=== PATIENT | female | born 1990 | race Caucasian/White ===

== ENCOUNTER 2024-03-16 14:05 | Inpatient (IN) | payer BC ==
[~2024-03-16] VITALS: Ht 167.6 cm; Wt 79.4 kg
[2024-03-16] MEDS ORDERED: OXYTOCIN/0.9 % SODIUM CHLORIDE 500 ML IV ONE (14:48)
[2024-03-16 14:55] LABS: HEMATOCRIT 43.3 % (35.0-50.0); HEMOGLOBIN 14.9 g/dL (12.0-18.0); MCH 31.6 (27-36); MCHC 34.5 g/dl (30-36); MCV 91.5 fl (81-99); RBC 4.73 M/ul (4.3-5.7); RDW 13.3 (10.5-15.0)
[2024-03-16] MEDS ORDERED: CALCIUM CARBONATE 500 MG CHEW PO PRN ×2 (15:00→16:45)
[2024-03-16] MEDS ORDERED: LACTATED RINGER'S 500 ML IV PRN (15:00)
[2024-03-16] MEDS ORDERED: ePHEDrine sulfate 5 MG/ML SYRINGE IV PRN (15:00)
[2024-03-16] MEDS ORDERED: OXYTOCIN/DEXTROSE 5% 20 UNITS/100 ML BAG IV SCH (15:00)
[2024-03-16] MEDS ORDERED: MAGNESIUM HYDROXIDE/AL HYDROX 30 ML CUP PO PRN ×2 (15:00→16:45)
[2024-03-16] MEDS ORDERED: LACTATED RINGER'S 2,000 ML IV ONE (15:00)
[2024-03-16] MEDS ORDERED: ROPIVACAINE 0.2% 200 ML BAG EPIDURAL SCH (15:00)
[2024-03-16] MEDS ORDERED: fentaNYL citrate 100 MCG/2 ML VIAL ONE (15:01)
[2024-03-16] MEDS ORDERED: ondansetron HCL 4 MG/2 ML VIAL IV ONE (15:15)
[2024-03-16 15:16] LABS: AMPHETAMINES, URINE NEGATIVE (NEGATIVE); BARBITURATES, URINE NEGATIVE (NEGATIVE); BENZODIAZEPINE, URINE NEGATIVE (NEGATIVE); BUPRENORPHINE, URINE NEGATIVE (NEGATIVE); CANNABINOID, URINE POSITIVE (NEGATIVE); COCAINE, URINE NEGATIVE (NEGATIVE); ECSTASY, URINE NEGATIVE (NEGATIVE); FENTANYL, URINE NEGATIVE (NEGATIVE); METHADONE, URINE NEGATIVE (NEGATIVE); OPIATES, URINE NEGATIVE (NEGATIVE); OXYCODONE, URINE NEGATIVE (NEGATIVE); PHENCYCLIDINE, URINE NEGATIVE (NEGATIVE)
[2024-03-16 15:22] LABS: ABO O; ANTIBODY SCREEN NEGATIVE; RH POSITIVE
[2024-03-16 15:47] VITALS: BP 119/59
[2024-03-16] MEDS ORDERED: WITCH HAZEL/GLYCERIN 1 EA PAD TOP PRN (16:45)
[2024-03-16] MEDS ORDERED: OXYTOCIN/0.9 % SODIUM CHLORIDE 500 ML IV SCH ×2 (16:45→17:15)
[2024-03-16] MEDS ORDERED: HYDROCORTISONE ACETATE 25 MG SUPP PR PRN (16:45)
[2024-03-16] MEDS ORDERED: ACETAMINOPHEN 325 MG TAB PO PRN (16:45)
[2024-03-16] MEDS ORDERED: BENZOCAINE 60 ML AEROSOL TOP PRN (16:45)
[2024-03-16] MEDS ORDERED: MAGNESIUM HYDROXIDE 30 ML UDC PO PRN (16:45)
[2024-03-16] MEDS ORDERED: IBUPROFEN 600 MG TAB PO PRN (16:45)
[2024-03-16] MEDS ORDERED: LIDOCAINE 2% VISCOUS 6 ML SYR TOP ONE ×2 (16:45)
[2024-03-16] MEDS ORDERED: SENNOSIDES/DOCUSATE 1 EA TAB PO SCH (21:00)
[2024-03-17 05:46] LABS: HEMATOCRIT 36.7 % (35.0-50.0); HEMOGLOBIN 12.5 g/dL (12.0-18.0); MCH 31.4 (27-36); MCHC 34.1 g/dl (30-36); MCV 92.1 fl (81-99); RBC 3.99 M/ul (4.3-5.7); RDW 13.3 (10.5-15.0)
[2024-03-17] MEDS ORDERED: SERTRALINE HCL 50 MG TAB PO SCH (09:00)
== END 2024-03-17 17:00 | disposition home or self-care (01) | DRG 806 ==
LOC: FBCO 14:05 → FBC 14:21
PROVIDERS: ADMIT Obstetrics & Gynecology; ATTEND Obstetrics & Gynecology
PROC: 10E0XZZ Delivery of Products of Conception, External Approach (ICD-10-PCS; principal; 2024-03-16)
PROC: 0KQM0ZZ Repair Perineum Muscle, Open Approach (ICD-10-PCS; 2024-03-16)
PROC: 3E0R3BZ Introduction of Anesthetic Agent into Spinal Canal, Percutaneous Approach (ICD-10-PCS; 2024-03-16)
PROC: 00HU33Z Insertion of Infusion Device into Spinal Canal, Percutaneous Approach (ICD-10-PCS; 2024-03-16)
DX: O99.344 Other mental disorders complicating childbirth (principal); O99.324 Drug use complicating childbirth; Z37.0 Single live birth; F12.90 Cannabis use, unspecified, uncomplicated; O70.1 Second degree perineal laceration during delivery; Z3A.37 37 weeks gestation of pregnancy; F32.A Depression, unspecified; F41.9 Anxiety disorder, unspecified
CPT/HCPCS: 36415; 80307; 85027; 86850; 86900; 86901; A9270; J2405; J3010; J7121